=== PATIENT | male | born 1960 | race Caucasian/White ===

== ENCOUNTER 2018-02-06 11:25 | Emergency (ER) | payer BC ==
--- NOTE | 2018-02-06 11:33 | ER Report ---
History and Physical Time Seen By MD: 11:33 Hx. of Stated Complaint: PT STATES HE HAD RIGHT, LEFT AND STERNAL CHEST PAIN; STARTED ABOUT A WEEK AGO; STATES THAT HE CANT GET RID OF IT; HS WITH HEART ATTACK 3YR AGO HPI/ROS CHIEF COMPLAINT: Chest pain HISTORY OF PRESENT ILLNESS: This is a 57-year-old male. He does have a history of coronary artery disease with stents. He has had several weeks of chest pain, this is felt in the substernal area and also in the right and left side of the chest and somewhat in the epigastric area. This comes and goes and is not consistent. He is traveling through and lives in [facility]. Stents were done about 3 years ago, normal follow-ups since then. The pain does not worsen with exertion. He does not have shortness of breath. He has had some increased congestion with increased phlegm production and cough. No fevers or chills although he does state that he gets some hot spells, but only when laying in his sides. He has had some feeling of swollen glands on left side of throat. REVIEW OF SYSTEMS: Constitutional: Generalized weakness. Eyes: No vision changes. ENT: Nasal and chest congestion. Cardiovascular: As above. Respiratory: As above. Gastrointestinal: No abdominal pain. No change in bowel movements. Genitourinary: No dysuria or changes in urination. Musculoskeletal: No back pain. No extremity pain. Skin: No rashes. Neurological: [No headache.] Allergies: Coded Allergies: Sulfa (Sulfonamide Antibiotics) (Verified Allergy, Unknown, 02/06/18) Home Meds Active Scripts Fluticasone Prop 50 Mcg Ns (FLONASE 50 MCG NS) 16 Gm [place].susp, 2 SPRAYS NS QDAY, #1 BOT 0 Refills Prov:MADISON HARRISON MD 02/06/18 Azithromycin (ZITHROMAX) 250 Mg Tablet, 0 PO QDAY, #6 TAB 0 Refills Take two tablets today, then one tablet once a day for 4 more days. Prov:MADISON HARRISON MD 02/06/18 Reviewed Nurses Notes: Yes Constitutional Vital Sign - Last 24 Hours 02/06/18 02/06/18 02/06/18 02/06/18 11:28 11:29 11:35 11:55 Temp 98.6 Pulse 63 61 Resp 18 12 B/P (MAP) 152/102 (119) 152/102 150/103 (119) Pulse Ox 94 95 O2 Delivery Room Air 02/06/18 02/06/18 02/06/18 02/06/18 12:00 12:05 12:30 12:35 Pulse 64 61 Resp 17 17 B/P (MAP) 136/90 (105) 144/100 (115) Pulse Ox 97 96 02/06/18 02/06/18 02/06/18 02/06/18 13:00 13:05 13:30 13:35 Pulse 56 56 Resp 12 11 B/P (MAP) 134/93 (107) 136/99 (111) Pulse Ox 94 94 02/06/18 02/06/18 02/06/18 13:40 14:00 14:10 Pulse 54 52 Resp 17 8 B/P (MAP) 153/109 (124) Pulse Ox 94 94 Physical Exam General Appearance: The patient is alert. No acute distress. Eyes: Pupils are equal, round. No pallor, injection or icterus. ENT: Mucous membranes are moist. Normal oral mucosa. Has some post nasal drainage and erythema. Left nasal passage red and erythematous, tender maxillary sinuses bilaterally. Neck: Supple and non tender. Respiratory: Lungs with some rhonchi, but no wheezing, rales, and good air movement. Cardiovascular: Regular rate and rhythm. No murmurs, gallops or rubs. Normal capillary refill. Gastrointestinal: Abdomen is soft and non tender. Nondistended. Normal active bowel sounds. No costovertebral angle tenderness with percussion. Neurological: Alert and oriented x3. Skin: Warm and dry. DIFFERENTIAL DIAGNOSIS: After history and physical exam, differential diagnosis was considered for chest pain including but not limited to myocardial ischemia, pericarditis pulmonary embolus, chest wall pain, pleural inflammation and pulmonary infectious causes. Medical Decision Making Data Points Result Diagram: 02/06/18 1143 02/06/18 1143 Laboratory Hematology Test 02/06/18 11:43 Red Blood Count 5.79 M/uL (4.00-5.60) Mean Corpuscular Volume 80.9 fL (80.0-96.0) Mean Corpuscular Hemoglobin 28.8 pg (26.0-33.0) Mean Corpuscular Hemoglobin Concent 35.6 g/dL (32.0-36.0) Red Cell Distribution Width 14.2 % (11.5-14.5) Mean Platelet Volume 8.9 fL (7.2-11.1) Neutrophils (%) (Auto) 65.2 % (39.4-72.5) Lymphocytes (%) (Auto) 21.5 % (17.6-49.6) Monocytes (%) (Auto) 9.7 % (4.1-12.4) Eosinophils (%) (Auto) 3.1 % (0.4-6.7) Basophils (%) (Auto) 0.5 % (0.3-1.4) Nucleated RBC Relative Count (auto) 0.1 /100WBC Neutrophils # (Auto) 3.8 K/uL (2.0-7.4) Lymphocytes # (Auto) 1.2 K/uL (1.3-3.6) Monocytes # (Auto) 0.6 K/uL (0.3-1.0) Eosinophils # (Auto) 0.2 K/uL (0.0-0.5) Basophils # (Auto) 0.0 K/uL (0.0-0.1) Nucleated RBC Absolute Count (auto) 0.00 K/uL D-Dimer Quantitative (PE/DVT) 0.39 ug/ml (0-0.50) Sodium Level 140 mmol/L (137-145) Potassium Level 4.0 mmol/L (3.5-5.0) Chloride Level 105 mmol/L (98-107) Carbon Dioxide Level 25 mmol/L (22-30) Blood Urea Nitrogen 13 mg/dl (9-21) Creatinine 1.10 mg/dl (0.66-1.25) Glomerular Filtration Rate Calc > 60.0 Random Glucose 92 mg/dl (75-110) Calcium Level 9.0 mg/dl (8.4-10.2) Total Bilirubin 1.3 mg/dl (0.2-1.3) Aspartate Amino Transf (AST/SGOT) 26 U/L (0-35) Alanine Aminotransferase (ALT/SGPT) 38 U/L (0-56) Alkaline Phosphatase 72 U/L (0-126) Troponin I < 0.012 ng/ml B-Type Natriuretic Peptide 13 pg/ml (0-100) Total Protein 7.0 g/dl (6.3-8.2) Albumin 4.2 g/dl (3.5-5.0) Chemistry Test 02/06/18 11:43 White Blood Count 5.8 k/uL (4.5-11.0) Red Blood Count 5.79 M/uL (4.00-5.60) Hemoglobin 16.7 g/dL (14.0-18.0) Hematocrit 46.8 % (42.0-52.0) Mean Corpuscular Volume 80.9 fL (80.0-96.0) Mean Corpuscular Hemoglobin 28.8 pg (26.0-33.0) Mean Corpuscular Hemoglobin Concent 35.6 g/dL (32.0-36.0) Red Cell Distribution Width 14.2 % (11.5-14.5) Platelet Count 157 K/uL (150-450) Mean Platelet Volume 8.9 fL (7.2-11.1) Neutrophils (%) (Auto) 65.2 % (39.4-72.5) Lymphocytes (%) (Auto) 21.5 % (17.6-49.6) Monocytes (%) (Auto) 9.7 % (4.1-12.4) Eosinophils (%) (Auto) 3.1 % (0.4-6.7) Basophils (%) (Auto) 0.5 % (0.3-1.4) Nucleated RBC Relative Count (auto) 0.1 /100WBC Neutrophils # (Auto) 3.8 K/uL (2.0-7.4) Lymphocytes # (Auto) 1.2 K/uL (1.3-3.6) Monocytes # (Auto) 0.6 K/uL (0.3-1.0) Eosinophils # (Auto) 0.2 K/uL (0.0-0.5) Basophils # (Auto) 0.0 K/uL (0.0-0.1) Nucleated RBC Absolute Count (auto) 0.00 K/uL D-Dimer Quantitative (PE/DVT) 0.39 ug/ml (0-0.50) Glomerular Filtration Rate Calc > 60.0 Calcium Level 9.0 mg/dl (8.4-10.2) Total Bilirubin 1.3 mg/dl (0.2-1.3) Aspartate Amino Transf (AST/SGOT) 26 U/L (0-35) Alanine Aminotransferase (ALT/SGPT) 38 U/L (0-56) Alkaline Phosphatase 72 U/L (0-126) Troponin I < 0.012 ng/ml B-Type Natriuretic Peptide 13 pg/ml (0-100) Total Protein 7.0 g/dl (6.3-8.2) Albumin 4.2 g/dl (3.5-5.0) Coagulation Test 02/06/18 11:43 D-Dimer Quantitative (PE/DVT) 0.39 ug/ml EKG/Imaging EKG Interpretation 12 lead EKG: Rhythm: normal sinus rhythm, rate 60 to [employer]: normal QRS: Minimal voltage criteria for LVH ST segments: Poor R-wave progression, possible old septal infarct. No ST elevation or depression noted Imaging EXAMINATION: PA and Lateral Chest 02/06/2018 11:44 AM HISTORY: Chest Pain COMPARISON: None FINDINGS: Cardiomediastinal contours: Normal Lungs and pleura: Normal Bones/soft tissues: Normal IMPRESSION: No acute cardiopulmonary abnormality. Report Dictated By: Eleuterio Ferguson MD at 02/06/2018 12:38 PM ED Course/Re-evaluation Clinical Indication for ER IV: IV Access ED Course No sign of pneumonia and labs okay. After our discussion, will begin some Azithromycin based on this appearing likely secondary bacterial infection etiher bronchitis or sinuses. Decision to Disposition Date: Feb 06, 2018 Decision to Disposition Time: 14:13 Depart Departure Latest Vital Signs Vital Signs Date Time Temp Pulse Resp B/P (MAP) Pulse Ox O2 Delivery O2 Flow Rate FiO2 02/06/18 14:10 52 8 94 02/06/18 14:00 153/109 (124) 02/06/18 11:29 98.6 Room Air Impression: Primary Impression: Chest pain Additional Impression: Acute bronchitis, bacterial Condition: Improved Disposition: HOME OR SELF-CARE New Scripts Fluticasone Prop 50 Mcg Ns (FLONASE 50 MCG NS) 16 Gm [place].susp 2 SPRAYS NS QDAY, #1 BOT 0 Refills Prov: MADISON HARRISON MD 02/06/18 Azithromycin (ZITHROMAX) 250 Mg Tablet 0 PO QDAY, #6 TAB 0 Refills Take two tablets today, then one tablet once a day for 4 more days. Prov: MADISON HARRISON MD 7/14/18 Patient Instructions: Acute Bronchitis (ED), Chest Pain (ED) Additional Instructions: Labs and imaging were negative today. Based on the congestion that you have, and the course and timing of symptoms, this is likely a bronchitis with secondary bacterial infection. We are going to start Azithromycin 250gm tablets, take 2 tablets today, then 1 tablet daily for 4 more days. We will try starting a nasal steroid as well, Flonase, start with one spray per nostril once a day this week and then increase to 2 sprays per nostril once a day. Follow-up with your regular doctor upon return to [place]. Problem Qualifiers Primary Impression: Chest pain Chest pain type: unspecified Qualified Codes: R07.9 - Chest pain, unspecified MADISON HARRISON MD Feb 06, 2018 11:33
[2018-02-06] MEDS ORDERED: ASPIRIN 81 MG CHEW PO ONE (11:45)
[2018-02-06 12:01] LABS: PLATELET COUNT, AUTOMATED 157 K/uL (150-450)
--- NOTE | 2018-02-06 12:22 | EKG ---
FACILITY: [facility] - [place] PATIENT NAME: WALTER GO : [id number] MR: [id number] V: [id number] EXAM DATE: ORDERING PHYSICIAN: MADISON HARRISON TECHNOLOGIST: SOSA Pérez Reason : CHEST PAIN Blood Pressure : / mmHG Vent. Rate : 062 BPM Atrial Rate : 062 BPM P-R Int : 186 ms QRS Dur : 102 ms QT Int : 412 ms P-R-T Axes : 019 -18 036 degrees QTc Int : 418 ms Normal sinus rhythm Minimal voltage criteria for LVH, may be normal variant Septal infarct , age undetermined Abnormal ECG No previous ECGs available Confirmed by FRANCIE MAHMOOD ([id number]) on 02/06/2018 6:55:10 PM Referred By: CHRISTY Confirmed By:FRANCIE MAHMOOD
--- NOTE | 2018-02-06 12:42 | RADIOLOGY IMAGING REPORT ---
FACILITY: [facility] - [place] PATIENT NAME: Eleuterio Florence : 1960 MR: [id number] V: [id number] EXAM DATE: ORDERING PHYSICIAN: MADISON HARRISON TECHNOLOGIST: Location: [facility] - [place] Patient: Eleuterio Florence : 1960 Visit/Account:[id number] Date of Sevice: 02/06/2018 EXAMINATION: PA and Lateral Chest 02/06/2018 11:44 AM HISTORY: Chest Pain COMPARISON: None FINDINGS: Cardiomediastinal contours: Normal Lungs and pleura: Normal Bones/soft tissues: Normal IMPRESSION: No acute cardiopulmonary abnormality. Report Dictated By: Eleuterio Ferguson MD at 02/06/2018 12:38 PM Report E-Signed By: Eleuterio Ferguson MD at 02/06/2018 12:39 PM WSN:[id number]
[2018-02-06 14:00] VITALS: BP 153/109
[2018-02-06] MEDS ORDERED: AZIT-1 PO (14:18)
[2018-02-06] MEDS ORDERED: FLUT16SP19 NS (14:18)
== END 2018-02-06 14:27 | disposition home or self-care (01) ==
LOC: ER 11:37
DX: J20.9 Acute bronchitis, unspecified (principal); R07.89 Other chest pain
CPT/HCPCS: 82040; 82247; 82310; 82374; 82435; 82565; 82947; 83880; 84075; 84132; 84155; 84295; 84450; 84460; 84484; 84520; 85025; 85379; 93005; 99284

== ENCOUNTER → 2019-02-14 | Outpatient (REF) | payer BC ==
[~2019-02-14] MED LIST: AZIT-1 PO; FLUT16SP19 NS
[2019-02-14 16:51] LABS: PLATELET COUNT, AUTOMATED 161 K/uL (150-450)
== END ==
LOC: ZZSTITCHES 16:03
PROVIDERS: ATTEND Physician Assistant
DX: R07.9 Chest pain, unspecified (principal); R06.02 Shortness of breath; I25.2 Old myocardial infarction; R61 Generalized hyperhidrosis
CPT/HCPCS: 82040; 82247; 82310; 82374; 82435; 82565; 82947; 84075; 84132; 84155; 84295; 84443; 84450; 84460; 84484; 84520; 85025; 86140